=== PATIENT | male | born 1950 | race Two or more races ===

== ENCOUNTER 2018-01-11 08:14 | Outpatient (CLI) | payer OTHER | END 2018-01-11 12:13 | disposition home or self-care (01) | LOC: SONOGRAMA 08:14 | DX: R10.9 Unspecified abdominal pain (principal) ==

== ENCOUNTER → 2020-12-13 08:09 | Outpatient (CLI) | payer OTHER ==
[~2020-12-13 08:09] MED LIST: CARDURA8 MG PO; FORTAMET1000 MG PO; GABAPENT PO; GABAPENTIN400 MG; LANTU; LEVOXYL50 MCG PO; PEPCID AC20 MG PO; PERCOCET 5-3251 EACH PO; SEMGLEE100 UNIT/1; SIMVASTATIN20 MG; VASOTEC10 MG PO
== END | disposition home or self-care (01) ==
LOC: LAB 08:09
PROVIDERS: ATTEND Surgery
DX: C18.6 Malignant neoplasm of descending colon (principal); D37.9 Neoplasm of uncertain behavior of digestive organ, unspecified; R59.0 Localized enlarged lymph nodes; R10.9 Unspecified abdominal pain; R63.4 Abnormal weight loss; Z12.11 Encounter for screening for malignant neoplasm of colon; K57.30 Diverticulosis of large intestine without perforation or abscess without bleeding; D37.4 Neoplasm of uncertain behavior of colon; Z01.810 Encounter for preprocedural cardiovascular examination

== ENCOUNTER 2020-12-14 07:49 | Outpatient (CLI) | payer OTHER | END 2020-12-14 07:58 | disposition home or self-care (01) | LOC: TOM 07:49 | PROVIDERS: ATTEND Surgery | DX: C18.6 Malignant neoplasm of descending colon (principal) | CPT/HCPCS: 71260; 74177; Q9965 ==

== ENCOUNTER → 2020-12-15 10:18 | Outpatient (CLI) | payer OTHER | END | disposition home or self-care (01) | LOC: LAB 10:18 | PROVIDERS: ATTEND Surgery | DX: Z03.818 Encounter for observation for suspected exposure to other biological agents ruled out (principal) ==

== ENCOUNTER 2020-12-16 07:15 | Inpatient (IN) | payer OTHER ==
[~2020-12-16] VITALS: Ht 172.7 cm; Wt 74.4 kg
[2020-12-16] MEDS ORDERED: FORTAMET1000 MG PO (13:10)
[2020-12-16] MEDS ORDERED: LEVOXYL50 MCG PO (13:11)
[2020-12-16] MEDS ORDERED: CARDURA8 MG PO (13:11)
[2020-12-16] MEDS ORDERED: VASOTEC10 MG PO (13:11)
[2020-12-16] MEDS ORDERED: GABAPENT PO (13:12)
[2020-12-16] MEDS ORDERED: LANTU (13:13)
[2020-12-23] MEDS ORDERED: GABAPENTIN400 MG (14:05)
[2020-12-23] MEDS ORDERED: SIMVASTATIN20 MG (14:05)
[2020-12-23] MEDS ORDERED: SEMGLEE100 UNIT/1 (14:06)
[2020-12-27] MEDS ORDERED: PERCOCET 5-3251 EACH PO (08:35)
[2020-12-27] MEDS ORDERED: PEPCID AC20 MG PO (08:37)
== END 2020-12-27 20:26 | disposition home or self-care (01) | DRG 331 ==
LOC: O/R 12-22 06:00 → SURH 12-22 06:00
PROVIDERS: ADMIT Surgery; ATTEND Surgery
PROC: 0DBN4ZZ Excision of Sigmoid Colon, Percutaneous Endoscopic Approach (ICD-10-PCS; 2020-12-22)
PROC: 07BC4ZX Excision of Pelvis Lymphatic, Percutaneous Endoscopic Approach, Diagnostic (ICD-10-PCS; 2020-12-22)
PROC: 0DTP4ZZ Resection of Rectum, Percutaneous Endoscopic Approach (ICD-10-PCS; principal; 2020-12-22 07:00)
DX: K57.32 Diverticulitis of large intestine without perforation or abscess without bleeding (principal); F43.21 Adjustment disorder with depressed mood; R59.0 Localized enlarged lymph nodes

== ENCOUNTER 2020-12-21 06:00 | Day surgery (SDC) | payer OTHER ==
[~2020-12-21 06:00] MED LIST changes: -GABAPENTIN400 MG; -PEPCID AC20 MG PO; -PERCOCET 5-3251 EACH PO; -SEMGLEE100 UNIT/1; -SIMVASTATIN20 MG
== END 2020-12-21 11:30 | disposition home or self-care (01) ==
LOC: AMB-ENDOS 06:00
PROVIDERS: ATTEND Surgery
DX: K62.89 Other specified diseases of anus and rectum (principal); Z20.822 Contact with and (suspected) exposure to COVID-19; Z12.11 Encounter for screening for malignant neoplasm of colon